=== PATIENT | female | born 1965 | race Caucasian/White ===

== ENCOUNTER → 2017-08-24 | Outpatient (CLI) | payer OTHER ==
[~2017-08-24] MED LIST: BISA10SU2 PR; CALC0.25 PO; CEFT1FRO2 IVPB; FURO-92 PO; FURO-93 PO; FURO40TA6 PO; LACT20SO13 PO; MAGN64TA7 PO; METR500T PO; MIDO10TA PO; MULT-516 PO; OXYC5TAB3 PO; PANT40TA3 PO; PARO20TA4 PO; POTA10TA PO; POTA10TA6 PO; PROP10TA PO; PROP20TA PO; RIFA200T5 PO; RIFA550T4 PO; SPIR100T2 PO; SPIR25TA3 PO; TACR1CAP4 PO; TRAZ100T15 PO; URSO250T9 PO; VALA500T PO; VITA1CAP PO; VITA80004 PO
[2017-08-24 11:48] LABS: HEMATOCRIT 45.9 % (34.6-47.8); HEMOGLOBIN 15.6 g/dL (11.7-16.4); WHITE BLOOD COUNT 4.2 x10^3/uL (3.4-10)
[2017-08-24 11:59] LABS: ASPARTATE AMINO TRANSFERASE 16 U/L (15-37); BLOOD UREA NITROGEN 17 mg/dL (7-18)
[2017-08-24 12:03] LABS: PATH.CAST-FLAG NOT PRESENT; SPERM-FLAG NOT PRESENT; SRC-FLAG NOT PRESENT; XTAL-FLAG NOT PRESENT; YLC-FLAG NOT PRESENT
== END | disposition home or self-care (01) ==
LOC: MERGE 10:00 → STAR 10:04
PROVIDERS: ATTEND Obstetrics & Gynecology
DX: Z01.818 Encounter for other preprocedural examination (principal); D06.9 Carcinoma in situ of cervix, unspecified
CPT/HCPCS: 36415; 80053; 81001; 85025

== ENCOUNTER 2017-08-30 05:45 | Observation (INO) | payer OTHER, MEDICARE ==
[~2017-08-30] VITALS: Ht 157.5 cm; Wt 55.5 kg
[2017-08-30] MEDS ORDERED: LIDOCAINE 1%, 2ML ONE (06:47)
[2017-08-30] MEDS ORDERED: FLUORESCEIN SODIUM 500 MG/5 ML ONE (06:49)
[2017-08-30] MEDS ORDERED: EPINEPHRINE 1 MG/ML, 1ML ONE (06:49)
[2017-08-30] MEDS ORDERED: BUPIVACAINE/PF 0.25% ONE (06:49)
[2017-08-30] MEDS ORDERED: LIDOCAINE 1%, 2ML SQ PRN (07:00)
[2017-08-30] MEDS: LACTATED RINGERS 1,000 ML IV SCH (07:09)
[2017-08-30] MEDS ORDERED: FENTANYL PF 100 MCG/2ML ONE ×2 (07:23→09:41)
[2017-08-30] MEDS ORDERED: HYDROmorphone 1 MG/ML, 1ML ONE (07:23)
[2017-08-30] MEDS ORDERED: KETOROLAC 30 MG/1 ML ONE (07:40)
[2017-08-30] MEDS ORDERED: PROPOFOL 10 MG/ML, 50ML ONE (07:40)
[2017-08-30] MEDS ORDERED: GLYCOPYRROLATE 0.2MG/1ML, 5ML ONE (07:40)
[2017-08-30] MEDS ORDERED: SUCCINYLCHOLINE 20 MG/ML, 10ML ONE (07:40)
[2017-08-30] MEDS ORDERED: CEFAZOLIN 1,000 MG ONE (07:40)
[2017-08-30] MEDS ORDERED: DEXAMETHASONE 4 MG/ML, 5ML ONE ×2 (07:40)
[2017-08-30] MEDS ORDERED: PHENYLEPHRINE 10 MG/ML ONE (07:40)
[2017-08-30] MEDS ORDERED: ONDANSETRON 2MG/ML, 2ML ONE (07:40)
[2017-08-30] MEDS ORDERED: ROCURONIUM 10 MG/ML ONE (07:40)
[2017-08-30] MEDS ORDERED: NEOSTIGMINE 1 MG/ML, 10ML ONE (07:40)
[2017-08-30] MEDS ORDERED: BUPIVACAINE/PF 0.25% INFIL ONE (08:12)
[2017-08-30] MEDS ORDERED: PROMETHAZINE 25 MG/ML, 1ML IV PRN (08:30)
[2017-08-30] MEDS ORDERED: LABETALOL 5MG/ML, 20ML IV PRN (08:30)
[2017-08-30] MEDS ORDERED: OXYcodone 5 MG/5 ML ORAL.SOL UDC PO PRN (08:30)
[2017-08-30] MEDS ORDERED: HYDROmorphone 1 MG/ML, 1ML IV PRN (08:30)
[2017-08-30] MEDS ORDERED: hydrALAzine 20 MG/ML, 1ML IV PRN (08:30)
[2017-08-30] MEDS ORDERED: ONDANSETRON 2MG/ML, 2ML IVPush PRN ×2 (08:30→18:30)
[2017-08-30] MEDS ORDERED: OXYcodone 5 MG/5 ML ORAL.SOL UDC ONE ×2 (09:41→18:24)
[2017-08-30] MEDS: FENTANYL PF 100 MCG/2ML IV PRN ×2 (09:43→09:56)
[2017-08-30 11:29] LABS: ASPARTATE AMINO TRANSFERASE 28 U/L (15-37); BLOOD UREA NITROGEN 22 mg/dL (7-18)
[2017-08-30] MEDS: OXYcodone 5 MG/5 ML ORAL.SOL UDC PO PRN ×3 (14:02→23:24)
[2017-08-30] MEDS ORDERED: LACTATED RINGERS 1,000 ML IV SCH (18:26)
[2017-08-30 20:27] VITALS: BP 107/68
[2017-08-30 23:18] VITALS: BP 98/64
[2017-08-31] MEDS: LACTATED RINGERS 1,000 ML IV SCH (01:43)
[2017-08-31 03:01] VITALS: BP 95/65
[2017-08-31] MEDS: OXYcodone 5 MG/5 ML ORAL.SOL UDC PO PRN ×2 (04:53→08:30)
[2017-08-31 07:47] VITALS: BP 96/63
[2017-08-31] MEDS ORDERED: OXYC5CAP2 PO (10:04)
== END 2017-08-31 10:35 | disposition home or self-care (01) ==
LOC: OUT 05:45 → MERGE 07:30 → OUT 18:25 → 4NOR 18:26 → DCLOUNGE 08-31 10:22
PROVIDERS: ADMIT Obstetrics & Gynecology; ATTEND Obstetrics & Gynecology
DX: D06.9 Carcinoma in situ of cervix, unspecified (principal); K70.30 Alcoholic cirrhosis of liver without ascites; K66.0 Peritoneal adhesions (postprocedural) (postinfection); Z80.3 Family history of malignant neoplasm of breast; Z87.410 Personal history of cervical dysplasia; Z82.49 Family history of ischemic heart disease and other diseases of the circulatory system; Z94.4 Liver transplant status
CPT/HCPCS: 36415; 58552; 80053; 88309; G0378; J0171; J0330; J0690; J1100; J1170; J1885; J2370; J2405; J2704; J2710; J3010; J3490; J7120

== ENCOUNTER → 2017-09-12 | Outpatient (CLI) | payer OTHER ==
[~2017-09-12] MED LIST changes: +OXYC5CAP2 PO
== END | disposition home or self-care (01) ==
LOC: MERGE 08-22 14:11 → CFH 08:14
PROVIDERS: ATTEND Family Medicine
DX: Z12.31 Encounter for screening mammogram for malignant neoplasm of breast (principal); M81.0 Age-related osteoporosis without current pathological fracture
CPT/HCPCS: 77063; 77080; G0202

== ENCOUNTER → 2017-10-13 | Outpatient (CLI) | payer OTHER | LOC: STAR 12:14 | PROVIDERS: ATTEND Surgery | DX: Z02.9 Encounter for administrative examinations, unspecified (principal) ==

== ENCOUNTER 2017-10-17 08:13 | Day surgery (SDC) | payer OTHER ==
[~2017-10-17] VITALS: Ht 157.5 cm; Wt 52.3 kg
[2017-10-17] MEDS ORDERED: LACTATED RINGERS 1,000 ML IV SCH (08:33)
[2017-10-17 09:04] VITALS: BP 100/59
[2017-10-17] MEDS ORDERED: FENTANYL PF 250 MCG/5ML ONE (09:31)
[2017-10-17] MEDS ORDERED: MIDAZOLAM 1 MG/ML, 2ML ONE (09:31)
[2017-10-17] MEDS ORDERED: KETOROLAC 30 MG/1 ML ONE (09:50)
[2017-10-17] MEDS ORDERED: BUPIVACAINE/PF 0.5% ONE (09:57)
[2017-10-17] MEDS ORDERED: EPINEPHRINE 1 MG/ML, 1ML ONE (09:57)
[2017-10-17] MEDS ORDERED: PROPOFOL 10 MG/ML, 20ML ONE (10:27)
[2017-10-17] MEDS ORDERED: ONDANSETRON 2MG/ML, 2ML ONE (10:27)
[2017-10-17] MEDS ORDERED: DEXAMETHASONE 4 MG/ML, 1ML ONE (10:27)
[2017-10-17] MEDS ORDERED: CEFAZOLIN 1,000 MG ONE (10:27)
[2017-10-17] MEDS ORDERED: OXYcodone 5 MG/5 ML ORAL.SOL UDC PO PRN (10:30)
[2017-10-17] MEDS ORDERED: HYDROmorphone 1 MG/ML, 1ML IV PRN (10:30)
[2017-10-17] MEDS ORDERED: hydrALAzine 20 MG/ML, 1ML IV PRN (10:30)
[2017-10-17] MEDS ORDERED: PROMETHAZINE 25 MG/ML, 1ML IV PRN (10:30)
[2017-10-17] MEDS ORDERED: FENTANYL PF 100 MCG/2ML IV PRN (10:30)
[2017-10-17] MEDS ORDERED: ALBUTEROL SULFATE 2.5 MG/3 ML NPPB PRN (10:30)
[2017-10-17] MEDS ORDERED: ACETAMINOPHEN 325 MG TABLET PO PRN (10:30)
[2017-10-17] MEDS ORDERED: MEPERIDINE/PF 25MG/0.5ML IVPush PRN (10:30)
[2017-10-17] MEDS ORDERED: METOPROLOL 1 MG/ML, 5ML IV PRN (10:30)
== END 2017-10-17 13:30 ==
LOC: OUT 08:13
PROVIDERS: ATTEND Surgery
DX: D17.1 Benign lipomatous neoplasm of skin and subcutaneous tissue of trunk (principal); Z88.1 Allergy status to other antibiotic agents; Z88.0 Allergy status to penicillin; Z98.890 Other specified postprocedural states; Z94.4 Liver transplant status
CPT/HCPCS: 22903; 88304; J0171; J0690; J1100; J1885; J2250; J2405; J2704; J3010; J3490; J7120

== ENCOUNTER 2020-01-30 19:12 | Observation (INO) | payer MEDICARE, OTHER ==
[~2020-01-30] VITALS: Ht 157.5 cm; Wt 48.2 kg
[~2020-01-30 19:12] MED LIST changes: -BISA10SU2 PR; +BISA10SU4 PR; -PROP10TA PO; +PROP10TA16 PO; -SPIR100T2 PO; +SPIR100T4 PO; -SPIR25TA3 PO; +SPIR25TA5 PO; +TRAZ-175 PO; -TRAZ100T15 PO; -VALA500T PO; +VALA500T8 PO
[2020-01-30] MEDS ORDERED: SODIUM CHLORIDE 0.9% 1,000 ML IV ONE (19:29)
[2020-01-30] MEDS ORDERED: ONDANSETRON 2MG/ML, 2ML IVPush ONE (19:30)
[2020-01-30] MEDS ORDERED: SODIUM CHLORIDE FLUSH 10ML SYR IVF ONE (19:30)
[2020-01-30] MEDS ORDERED: SODIUM CHLORIDE 0.9% 1,000ML IVBOLUS ONE (19:30)
[2020-01-30] MEDS ORDERED: ONDANSETRON 2MG/ML, 2ML ONE (19:40)
--- NOTE | 2020-01-30 20:12 | NUR ---
PT RESTING COFORTABLY. BACK FROM XRAY. MONITOR IN PLACE.
[2020-01-30 20:16] LABS: BASOPHILS # (AUTO) 0.01 x10^3/uL (0-0.1); BASOPHILS % (AUTO) 0 % (0-1); EOSINOPHILS # (AUTO) 0.01 x10^3/uL (0-0.4); EOSINOPHILS % (AUTO) 0 % (1-7); LYMPHOCYTES # (AUTO) 0.42 x10^3/uL (1-3.4); LYMPHOCYTES % (AUTO) 8 % (22-44); MD NO; MEAN CORPUSCULAR HEMOGLOBIN 35.8 pg (27.0-34.8); MEAN CORPUSCULAR HGB CONC 33.7 g/dL (32.4-35.8); MEAN CORPUSCULAR VOLUME 106.2 fL (80-100); MEAN PLATELET VOLUME 8.3 fL (7.4-10.4); MONOCYTES # (AUTO) 0.16 x10^3/uL (0.2-0.8); MONOCYTES % (AUTO) 3 % (2-9); NEUTROPHILS # (AUTO) 4.54 x10^3/uL (1.8-6.8); NEUTROPHILS % (AUTO) 88 % (42-75); PLATELET COUNT 138 x10^3/uL (130-400); RED CELL DISTRIBUTION WIDTH 12.9 % (9.6-15.2)
[2020-01-30 20:27] LABS: ALANINE AMINOTRANSFERASE 58 U/L (12-78); ALBUMIN 3.3 g/dL (3.4-5.0); ANION GAP 15 mmol/L (5-15); CALCIUM 7.3 mg/dL (8.5-10.1); CHLORIDE 113 mmol/L (98-107); CREATININE 0.82 mg/dL (0.55-1.02)
[2020-01-30 20:32] LABS: ALKALINE PHOSPHATASE 48 U/L (45-117); BILIRUBIN,TOTAL 0.5 mg/dL (0.2-1.0); TOTAL PROTEIN 6.4 g/dL (6.4-8.2); TROPONIN I < 0.015 ng/mL (0.000-0.045)
[2020-01-30 20:33] LABS: INTERNATIONAL NORMALIZED RATIO 1.15 (0.93-1.1); PROTHROMBIN TIME 12.2 Seconds (9.6-11.5)
[2020-01-30 21:53] LABS: MICROSCOPIC NOT IND
[2020-01-30 21:54] LABS: CULTURE INDICATED? NO
[2020-01-30] MEDS ORDERED: SODIUM CHLORIDE FLUSH 10ML SYR IVF PRN (22:30)
--- NOTE | 2020-01-30 22:45 | NUR ---
PT AMBULATED TO BR INDEPENDENTLY SBA. PT GAIT STEADY.
--- NOTE | 2020-01-30 23:18 | NUR ---
PT C/O N/V. NOTIFIED. ORDERS RECEIVED.
[2020-01-30] MEDS ORDERED: METOCLOPRAMIDE 5 MG/ML, 2ML IVPush ONE (23:30)
[2020-01-30 23:47] VITALS: BP 126/84
[2020-01-31 01:59] VITALS: BP 115/76
[2020-01-31] MEDS ORDERED: ONDANSETRON 2MG/ML, 2ML IVPush PRN (04:30)
[2020-01-31 05:26] LABS: CLOSTRIDIUM DIFFICILE ANTIGEN NEGATIVE; CLOSTRIDIUM DIFFICILE TOXIN NEGATIVE (Negative)
[2020-01-31 06:58] VITALS: BP 108/74
[2020-01-31] MEDS ORDERED: VALACYCLOVIR 500MG TABLET PO SCH (09:00)
[2020-01-31] MEDS ORDERED: TACROLIMUS 1 MG CAPSULE PO SCH (09:00)
[2020-01-31] MEDS ORDERED: ONDA4TAB7 PO (12:45)
[2020-01-31 14:04] VITALS: BP 115/79
[2020-01-31] MEDS ORDERED: TRAZODONE 100MG TABLET PO SCH (21:00)
== END 2020-01-31 15:15 | disposition home or self-care (01) ==
LOC: ED 23:28 → EDIP 23:40 → INTOOBSV 23:40 → 3N 01-31 00:05 → DCLOUNGE 01-31 15:08
PROVIDERS: ADMIT Family Medicine; ATTEND Family Medicine
DX: R11.2 Nausea with vomiting, unspecified (principal); R19.7 Diarrhea, unspecified; G43.909 Migraine, unspecified, not intractable, without status migrainosus; F10.10 Alcohol abuse, uncomplicated; E87.6 Hypokalemia; E86.0 Dehydration; Z94.4 Liver transplant status; Z87.891 Personal history of nicotine dependence
CPT/HCPCS: 36415; 74022; 80053; 81003; 83690; 84484; 85025; 85610; 85730; 87324; 93005; 96361; 96374; 96375; 99285; G0378; J2405; J2765; J7030; J7507

== ENCOUNTER 2020-07-23 22:36 | Inpatient (IN) | payer MEDICARE ==
[~2020-07-23] VITALS: Ht 157.5 cm; Wt 49.1 kg
[~2020-07-23 22:36] MED LIST changes: +ONDA4TAB7 PO; -TACR1CAP4 PO; +TACR1CAP5 PO
--- NOTE | 2020-07-23 23:24 | NUR ---
THIS IS A 55 YO FEMALE COMING IN FOR ETOH ABUSE, SEEKING DETOX. PATIENT HAS ATTEMPTED TO GET PLACEMENT OUTSIDE OF FACILITY WITH NO SUCCESS. PATIENT HAS 16OZ OF VODKA PER DAY, LAST DRINK @ 1999. HX HEMOCHROMOTOSIS. HAD LIVER TRANSPLANT IN 2016 AFTER BEING SOBER FOR 4.5 YEARS. BROKE SOBRIETY IN 2017. MONITORING IN PLACE, VSS, NADN. NO WITHDRAWL SYMPTOMS NOTED AT THIS TIME.
[2020-07-23] MEDS ORDERED: THIAMINE 100MG TABLET PO ONE (23:30)
[2020-07-23 23:41] LABS: BASOPHILS # (AUTO) 0.02 x10^3/uL (0-0.1); BASOPHILS % (AUTO) 1 % (0-1); EOSINOPHILS # (AUTO) 0.25 x10^3/uL (0-0.4); EOSINOPHILS % (AUTO) 7 % (1-7); LYMPHOCYTES # (AUTO) 1.47 x10^3/uL (1-3.4); LYMPHOCYTES % (AUTO) 39 % (22-44); MD NO; MEAN CORPUSCULAR HEMOGLOBIN 36.7 pg (27.0-34.8); MEAN CORPUSCULAR VOLUME 107.9 fL (80-100); MEAN PLATELET VOLUME 8.8 fL (7.4-10.4); MONOCYTES # (AUTO) 0.31 x10^3/uL (0.2-0.8); MONOCYTES % (AUTO) 8 % (2-9); NEUTROPHILS # (AUTO) 1.76 x10^3/uL (1.8-6.8); NEUTROPHILS % (AUTO) 46 % (42-75); PLATELET COUNT 123 x10^3/uL (130-400); RED BLOOD COUNT 3.65 x10^6/uL (3.82-5.3); RED CELL DISTRIBUTION WIDTH 15.1 % (9.6-15.2)
[2020-07-23] MEDS ORDERED: THIAMINE 100MG TABLET ONE (23:47)
[2020-07-23 23:50] LABS: ALANINE AMINOTRANSFERASE 103 U/L (12-78); ALBUMIN 3.6 g/dL (3.4-5.0); ANION GAP 6 mmol/L (5-15); CALCIUM 8.3 mg/dL (8.5-10.1); CHLORIDE 109 mmol/L (98-107); CREATININE 0.87 mg/dL (0.55-1.02)
[2020-07-23 23:53] LABS: ALKALINE PHOSPHATASE 136 U/L (45-117); BILIRUBIN,TOTAL 0.6 mg/dL (0.2-1.0); TOTAL PROTEIN 6.8 g/dL (6.4-8.2)
[2020-07-24] MEDS ORDERED: SODIUM CHLORIDE FLUSH 10ML SYR IVF PRN (00:30)
--- NOTE | 2020-07-24 00:44 | NUR ---
PIV PLACD FOR IV ACCESS
--- NOTE | 2020-07-24 00:45 | NUR ---
ATTEMPTED TO CALL HOUSEKEEPING TO GET HOSPITAL BED, NO ANSWER. WILL ATTEMPT AGAIN
[2020-07-24] MEDS ORDERED: ONDANSETRON 2MG/ML, 2ML IVPush PRN (01:00)
[2020-07-24] MEDS ORDERED: OXYcodone IR 5MG TABLET PO PRN (01:00)
[2020-07-24] MEDS ORDERED: POLYETHYLENE GLYCOL 17 GM PACKET PO PRN (01:00)
[2020-07-24] MEDS ORDERED: PROMETHAZINE 25 MG/ML, 1ML IM PRN (01:00)
[2020-07-24] MEDS ORDERED: hydrALAzine 20 MG/ML, 1ML IVPush PRN (01:00)
[2020-07-24] MEDS ORDERED: ONDANSETRON ODT 4 MG PO PRN (01:00)
[2020-07-24] MEDS ORDERED: BISACODYL 10 MG SUPP PR PRN (01:00)
[2020-07-24] MEDS ORDERED: DOCUSATE 100 MG CAPSULE PO PRN (01:00)
[2020-07-24] MEDS ORDERED: LORazepam 1MG TABLET PO PRN ×4 (01:30)
[2020-07-24] MEDS ORDERED: LORazepam 0.5MG TABLET PO PRN (01:30)
[2020-07-24] MEDS ORDERED: LORazepam 2 MG/ML, 1ML IV PRN ×5 (01:30)
--- NOTE | 2020-07-24 01:45 | NUR ---
PATIENT SLEEPING, RESPIRATIONS EVEN AND UNLABORED. VSSIMRAN Marroquin. CALL LIGHT IN REACH
[2020-07-24 01:49] LABS: INTERNATIONAL NORMALIZED RATIO 1.04 (0.93-1.1); PROTHROMBIN TIME 10.7 Seconds (9.6-11.5)
[2020-07-24 02:29] LABS: FREE T4 (FREE THYROXINE) 1.31 ng/dL (0.76-1.46)
--- NOTE | 2020-07-24 02:33 | NUR ---
PATIENT SLEEPING, RESPIRATIONS EVEN AND UNLABORED. SIMRAN HOBSON. CALL LIGHT IN REACH Addendum: 07/24/20 at 0246 by MANJULA NOTE COMPLETED BY JUAN M NOGUERA. NOT BY CHUCKIE UPTON
--- NOTE | 2020-07-24 03:09 | NUR ---
REPORT GIVEN TO CHUCKIE HOWELL. PLAN OF CARE DISCUSSED
--- NOTE | 2020-07-24 06:21 | NUR ---
Pt resting with eyes closed and appears to be sleeping at this time, NADN, VSS,
--- NOTE | 2020-07-24 06:50 | NUR ---
Report from yahir rn With assessment patient deep asleep Even and unlabored respirations noted-VSS on monitor
[2020-07-24] MEDS: MULTIVITAMIN 1 TABLET PO SCH ×2 (07:53→09:10)
--- NOTE | 2020-07-24 08:21 | NUR ---
SPOKE TO HOSPITALIST IN R/T TO TWO MEDI QUESTIONS: PATIENT ONLY TAKES 1GM OF PROGRAF BID (CHANGED FROM 2GM BID), ALSO TO ADMIN 2GM OF MAG MAG LEVEL 1.3
[2020-07-24] MEDS ORDERED: MAGNESIUM SULFATE PMX 2GM/50ML 50 ML IV ONE (08:30)
--- NOTE | 2020-07-24 08:46 | NUR ---
MEDS ORDERED FROM PHARMACY (PROGRAF/VALTREX) MOVED TO HOSPITAL BED PROVIDED WITH BREAKFAST TRAY
[2020-07-24] MEDS ORDERED: MAGNESIUM SULFATE PMX 2GM/50ML 50 ML ONE (08:51)
[2020-07-24] MEDS ORDERED: TACROLIMUS 1 MG CAPSULE PO SCH (09:00)
[2020-07-24] MEDS: THIAMINE 100MG TABLET PO SCH (09:00)
[2020-07-24] MEDS: TACROLIMUS 1 MG CAPSULE PO SCH ×2 (09:10→20:11)
[2020-07-24] MEDS: FOLIC ACID 1 MG TABLET PO SCH (09:10)
[2020-07-24] MEDS: VALACYCLOVIR 500MG TABLET PO SCH (09:10)
--- NOTE | 2020-07-24 10:23 | NUR ---
Now with slight anxiety/headache- to medicate with po ativan
[2020-07-24] MEDS ORDERED: LORazepam 1MG TABLET ONE (10:30)
[2020-07-24] MEDS: POTASSIUM CHLORIDE 20 MEQ, MAGNESIUM SULFATE 1 GM, FOLIC ACID 1 MG, THIAMINE 200 MG, MV... IV SCH (10:32)
--- NOTE | 2020-07-24 10:57 | NUR ---
report to isauro winston
--- NOTE | 2020-07-24 11:01 | NUR ---
RECEIVED REPORT FROM ALLEN NOGUERA. ASSUMING CARE AT THIS TIME. PT RESTING COMFORTABLY ON HOSPITAL BED. NADN. WAITING FOR ADMIT BED UPSTAIRS.
--- NOTE | 2020-07-24 12:43 | NUR ---
DIET TRAY DELIVERED. PT STATES SHE FEELS BETTER AFTER ATIVAN.
--- NOTE | 2020-07-24 14:30 | NUR ---
PT AMBULATED TO RESTROOM WITH STEADY GAIT.
--- NOTE | 2020-07-24 14:49 | NUR ---
REPORT GIVEN TO YAMIL NOGUERA.
[2020-07-24 16:44] VITALS: BP 113/75
[2020-07-24 19:44] VITALS: BP 118/78
[2020-07-24] MEDS: TRAZODONE 100MG TABLET PO SCH (20:11)
[2020-07-25 00:34] VITALS: BP 109/73
[2020-07-25 07:21] LABS: CHLORIDE 110 mmol/L (98-107)
[2020-07-25 07:28] LABS: ALANINE AMINOTRANSFERASE 72 U/L (12-78); ALKALINE PHOSPHATASE 119 U/L (45-117); ANION GAP 7 mmol/L (5-15); CALCIUM 7.7 mg/dL (8.5-10.1); CHOL/HDL RATIO 1.7; CHOLESTEROL, TOTAL 217 mg/dL (140-239); CREATININE 0.68 mg/dL (0.55-1.02); HDL CHOL % 60 % (28-40); HDL CHOLESTEROL (DIRECT) 130 mg/dL (40-60); LDL CHOLESTEROL,CALCULATED 61 mg/dL (54-169); LDL/HDL RATIO 0.5 (0.5-3.0); TOTAL PROTEIN 6.3 g/dL (6.4-8.2); TRIGLYCERIDES 129 mg/dL (50-200); VLDL CHOLESTEROL 26 mg/dL (0-25)
[2020-07-25 08:08] LABS: BASOPHILS # (AUTO) 0.01 x10^3/uL (0-0.1); BASOPHILS % (AUTO) 0 % (0-1); EOSINOPHILS # (AUTO) 0.21 x10^3/uL (0-0.4); EOSINOPHILS % (AUTO) 5 % (1-7); LYMPHOCYTES # (AUTO) 0.79 x10^3/uL (1-3.4); LYMPHOCYTES % (AUTO) 20 % (22-44); MD SCAN; MEAN CORPUSCULAR HEMOGLOBIN 36.7 pg (27.0-34.8); MEAN CORPUSCULAR HGB CONC 33.8 g/dL (32.4-35.8); MEAN CORPUSCULAR VOLUME 108.4 fL (80-100); MEAN PLATELET VOLUME 9.4 fL (7.4-10.4); MONOCYTES # (AUTO) 0.26 x10^3/uL (0.2-0.8); MONOCYTES % (AUTO) 6 % (2-9); NEUTROPHILS # (AUTO) 2.74 x10^3/uL (1.8-6.8); NEUTROPHILS % (AUTO) 68 % (42-75); PLATELET COUNT 96 x10^3/uL (130-400); RED BLOOD COUNT 3.48 x10^6/uL (3.82-5.3); RED CELL DISTRIBUTION WIDTH 15.3 % (9.6-15.2)
[2020-07-25 08:10] VITALS: BP 109/73
[2020-07-25] MEDS: THIAMINE 100MG TABLET PO SCH (08:22)
[2020-07-25] MEDS: TACROLIMUS 1 MG CAPSULE PO SCH ×2 (08:22→20:07)
[2020-07-25] MEDS: MULTIVITAMIN 1 TABLET PO SCH ×2 (08:22→08:23)
[2020-07-25] MEDS: VALACYCLOVIR 500MG TABLET PO SCH (08:22)
[2020-07-25] MEDS: FOLIC ACID 1 MG TABLET PO SCH (08:22)
[2020-07-25] MEDS: POTASSIUM CHLORIDE 20 MEQ, MAGNESIUM SULFATE 1 GM, FOLIC ACID 1 MG, THIAMINE 200 MG, MV... IV SCH (11:24)
[2020-07-25 13:30] VITALS: BP 111/71
[2020-07-25] MEDS: CHLORDIAZEPOXIDE 10 MG CAPSULE PO SCH ×2 (15:02→20:07)
[2020-07-25] MEDS: TRAZODONE 100MG TABLET PO SCH (20:07)
[2020-07-25 20:09] VITALS: BP 123/82
[2020-07-26 01:07] VITALS: BP 112/76
[2020-07-26] MEDS: CHLORDIAZEPOXIDE 10 MG CAPSULE PO SCH (05:52)
[2020-07-26 06:46] LABS: ANION GAP 6 mmol/L (5-15); CALCIUM 7.6 mg/dL (8.5-10.1); CHLORIDE 113 mmol/L (98-107)
[2020-07-26 06:51] LABS: ALANINE AMINOTRANSFERASE 66 U/L (12-78); ALKALINE PHOSPHATASE 108 U/L (45-117); BILIRUBIN,TOTAL 0.6 mg/dL (0.2-1.0); CREATININE 0.59 mg/dL (0.55-1.02); TOTAL PROTEIN 5.7 g/dL (6.4-8.2)
[2020-07-26 07:20] VITALS: BP 111/74
[2020-07-26] MEDS ORDERED: CHLO10CA6 PO (07:54)
[2020-07-26] MEDS: FOLIC ACID 1 MG TABLET PO SCH (08:47)
[2020-07-26] MEDS: THIAMINE 100MG TABLET PO SCH (08:47)
[2020-07-26] MEDS: VALACYCLOVIR 500MG TABLET PO SCH (08:48)
[2020-07-26] MEDS: TACROLIMUS 1 MG CAPSULE PO SCH (08:48)
[2020-07-26] MEDS: MULTIVITAMIN 1 TABLET PO SCH (08:48)
== END 2020-07-26 10:13 | disposition home or self-care (01) | DRG 433 ==
LOC: ED 07-24 01:07 → EDIP 07-24 01:54 → 4WST 07-24 15:37 → DCLOUNGE 07-26 09:52
PROVIDERS: ADMIT Internal Medicine; ATTEND Family Medicine
DX: K70.10 Alcoholic hepatitis without ascites (principal); Z94.4 Liver transplant status; F10.129 Alcohol abuse with intoxication, unspecified; D69.6 Thrombocytopenia, unspecified; E87.6 Hypokalemia; F41.9 Anxiety disorder, unspecified; G43.909 Migraine, unspecified, not intractable, without status migrainosus; K74.60 Unspecified cirrhosis of liver; Z80.0 Family history of malignant neoplasm of digestive organs; Z90.710 Acquired absence of both cervix and uterus; Z90.721 Acquired absence of ovaries, unilateral; Z79.899 Other long term (current) drug therapy; Z88.8 Allergy status to other drugs, medicaments and biological substances; Z88.2 Allergy status to sulfonamides; Z71.41 Alcohol abuse counseling and surveillance of alcoholic
CPT/HCPCS: 36415; 80053; 80061; 80197; 80307; 82306; 82607; 82962; 83036; 83690; 83735; 84439; 84443; 85025; 85610; G0378; J3411; J3475; J3480; J7507; J7121

== ENCOUNTER 2021-01-06 16:37 | Emergency (ER) | payer MEDICARE ==
[~2021-01-06] VITALS: Ht 157.5 cm; Wt 48.5 kg
[~2021-01-06 16:37] MED LIST changes: +CHLO10CA6 PO; -OXYC5TAB3 PO; +OXYC5TAB98 PO; +URSO250T10 PO; -URSO250T9 PO
[2021-01-06 16:59] VITALS: BP 131/92
--- NOTE | 2021-01-06 16:59 | NUR ---
NIL X 1
--- NOTE | 2021-01-06 17:30 | NUR ---
registration reported patient left ama from lobby. provider/charge entry made aware
== END 2021-01-06 17:36 | disposition home or self-care (01) ==
LOC: ED 17:30
DX: M62.838 Other muscle spasm (principal)
CPT/HCPCS: 99281

== ENCOUNTER 2021-01-30 11:38 | Inpatient (IN) | payer MEDICARE ==
[~2021-01-30] VITALS: Ht 157.5 cm; Wt 49.5 kg
[2021-01-30] MEDS ORDERED: SODIUM CHLORIDE 0.9% 1,000ML IVBOLUS ONE (12:00)
--- NOTE | 2021-01-30 12:03 | NUR ---
bib ems. pt stated "that her left hand started cramping. then her arms and legs started cramping and locked up. called ems and they meet her at [facility]" ems stated "admin 1 mg versed fsbs 195 " pt able to move arms and legs now "seem to be loosing up"
[2021-01-30 12:22] LABS: BASOPHILS % (AUTO) 1 % (0-1); EOSINOPHILS % (AUTO) 1 % (1-7); LYMPHOCYTES % (AUTO) 13 % (22-44); MD NO; MEAN CORPUSCULAR HEMOGLOBIN 36.5 pg (27.0-34.8); MEAN CORPUSCULAR HGB CONC 34.4 g/dL (32.4-35.8); MEAN PLATELET VOLUME 8.7 fL (7.4-10.4); MONOCYTES % (AUTO) 5 % (2-9); NEUTROPHILS % (AUTO) 81 % (42-75); PLATELET COUNT 151 x10^3/uL (130-400); RED BLOOD COUNT 4.11 x10^6/uL (3.82-5.3)
--- NOTE | 2021-01-30 12:30 | NUR ---
pt up to restroom with steady gait
[2021-01-30 12:33] LABS: ALBUMIN 3.4 g/dL (3.4-5.0); ANION GAP 15 mmol/L (5-15); CALCIUM 6.7 mg/dL (8.5-10.1); CHLORIDE 102 mmol/L (98-107)
[2021-01-30 12:36] LABS: ALANINE AMINOTRANSFERASE 55 U/L (12-78); ALKALINE PHOSPHATASE 78 U/L (45-117); BILIRUBIN,TOTAL 0.9 mg/dL (0.2-1.0)
[2021-01-30] MEDS ORDERED: CALCIUM GLUCONATE 0.46MEQ/1ML IVPush ONE (13:00)
[2021-01-30] MEDS ORDERED: NS + 40MEQ KCL 1,000 ML IV SCH (13:00)
[2021-01-30] MEDS ORDERED: CALCIUM GLUCONATE 4.6 MEQ in SODIUM CHLORIDE 0.9% 100 ML IV ONE (13:30)
--- NOTE | 2021-01-30 13:30 | NUR ---
pt in bed iv fluids running
[2021-01-30] MEDS ORDERED: NS + 40MEQ KCL 1,000 ML IV ONE (13:45)
[2021-01-30] MEDS ORDERED: SODIUM CHLORIDE FLUSH 10ML SYR IVF PRN (14:00)
[2021-01-30] MEDS ORDERED: POTASSIUM CHLORIDE 40 MEQ in SODIUM CHLORIDE 0.9% 1,000 ML IV ONE (14:00)
[2021-01-30 14:13] LABS: MICROSCOPIC AUTO
--- NOTE | 2021-01-30 14:19 | NUR ---
pt admitted to tele 2. report given to victor hugo winston.
[2021-01-30] MEDS ORDERED: RIZA10TA20 PO (14:37)
[2021-01-30 14:38] VITALS: BP 131/71
[2021-01-30] MEDS ORDERED: THIAMINE 200 MG, FOLIC ACID 1 MG in D5%-0.9% NACL 1,000 ML IV SCH (15:48)
[2021-01-30] MEDS ORDERED: OXYcodone IR 5MG TABLET PO PRN (16:00)
[2021-01-30] MEDS ORDERED: CALCIUM CHLORIDE 10%, 10ML SYR IVPush ONE (16:00)
[2021-01-30] MEDS ORDERED: LORazepam 2 MG/ML, 1ML IV PRN ×5 (16:00)
[2021-01-30] MEDS ORDERED: morphine SULFATE 10 MG/ML, 1ML IVPush PRN (16:00)
[2021-01-30] MEDS ORDERED: POTASSIUM CHLORIDE 40 MEQ in SODIUM CHLORIDE 0.9% 500 ML IV ONE (16:00)
[2021-01-30] MEDS ORDERED: METOCLOPRAMIDE 5 MG/ML, 2ML IVPush PRN (16:00)
[2021-01-30] MEDS ORDERED: PROMETHAZINE 25 MG/ML, 1ML IM PRN (16:00)
[2021-01-30] MEDS ORDERED: THIAMINE 200 MG in SODIUM CHLORIDE 0.9% 50 ML IV ONE (16:00)
[2021-01-30] MEDS ORDERED: ONDANSETRON 2MG/ML, 2ML IVPush PRN (16:00)
[2021-01-30] MEDS: ENOXAPARIN 40 MG/0.4 ML SQ SCH (16:51)
[2021-01-30] MEDS: CHLORDIAZEPOXIDE 25 MG CAPSULE PO SCH ×2 (16:51→21:59)
[2021-01-30] MEDS: CEFTRIAXONE PMX 1GM/50ML 50 ML IV SCH (16:59)
[2021-01-30 17:22] LABS: CLOSTRIDIUM DIFFICILE ANTIGEN POSITIVE; CLOSTRIDIUM DIFFICILE TOXIN NEGATIVE (Negative)
[2021-01-30] MEDS ORDERED: CALCIUM CHLORIDE 13.6 MEQ in SODIUM CHLORIDE 0.9% 100 ML IV ONE (18:30)
[2021-01-30 20:47] VITALS: BP 124/83
[2021-01-30] MEDS: LACTOBACILLUS CHEW TABLET PO SCH (20:49)
[2021-01-30] MEDS: VANCOMYCIN 50 MG/ML ORAL SUSP PO SCH (20:49)
[2021-01-30] MEDS: TRAZODONE 100MG TABLET PO SCH (20:49)
[2021-01-30] MEDS: TACROLIMUS 1 MG CAPSULE PO SCH (20:49)
[2021-01-30] MEDS: THIAMINE 200 MG, FOLIC ACID 1 MG in D5%-0.9% NACL 1,000 ML IV SCH (21:00)
[2021-01-31 03:27] VITALS: BP 109/71
[2021-01-31 05:25] LABS: BASOPHILS % (AUTO) 1 % (0-1); EOSINOPHILS % (AUTO) 5 % (1-7); LYMPHOCYTES % (AUTO) 33 % (22-44); MEAN CORPUSCULAR HEMOGLOBIN 36.4 pg (27.0-34.8); MEAN CORPUSCULAR HGB CONC 34.9 g/dL (32.4-35.8); MEAN PLATELET VOLUME 9.5 fL (7.4-10.4); MONOCYTES % (AUTO) 9 % (2-9); NEUTROPHILS % (AUTO) 53 % (42-75); PLATELET COUNT 117 x10^3/uL (130-400); RED CELL DISTRIBUTION WIDTH 12.7 % (9.6-15.2)
[2021-01-31 05:27] LABS: ALBUMIN 2.7 g/dL (3.4-5.0); ANION GAP 10 mmol/L (5-15); CALCIUM 6.7 mg/dL (8.5-10.1); CHLORIDE 112 mmol/L (98-107)
[2021-01-31 05:29] LABS: MD NO
[2021-01-31 05:41] LABS: ALANINE AMINOTRANSFERASE 38 U/L (12-78); ALKALINE PHOSPHATASE 63 U/L (45-117); BILIRUBIN,TOTAL 0.9 mg/dL (0.2-1.0); CREATININE 0.72 mg/dL (0.55-1.02); TOTAL PROTEIN 5.7 g/dL (6.4-8.2)
[2021-01-31] MEDS: CHLORDIAZEPOXIDE 25 MG CAPSULE PO SCH ×2 (05:55→12:42)
[2021-01-31] MEDS: LACTOBACILLUS CHEW TABLET PO SCH ×4 (05:55→21:09)
[2021-01-31] MEDS: VANCOMYCIN 50 MG/ML ORAL SUSP PO SCH ×3 (05:55→17:52)
[2021-01-31] MEDS ORDERED: MAGNESIUM SULFATE PMX 4GM/100M 100 ML IVPB STA (06:37)
[2021-01-31] MEDS ORDERED: POTASSIUM PHOSPHATE 44 MEQ in SODIUM CHLORIDE 0.9% 500 ML IV ONE (07:30)
[2021-01-31] MEDS: VALACYCLOVIR 500MG TABLET PO SCH (07:35)
[2021-01-31] MEDS: PANTOPRAZOLE 40 MG IV IVPush SCH (07:35)
[2021-01-31] MEDS: TACROLIMUS 1 MG CAPSULE PO SCH ×2 (07:35→21:09)
[2021-01-31 08:20] VITALS: BP 110/72
[2021-01-31] MEDS: MULTIVITS,STRESS FORMULA 1 TABLET PO SCH (09:08)
[2021-01-31] MEDS: CHOLECALCIFEROL 5,000u TAB PO SCH (09:09)
[2021-01-31] MEDS: ZINC SULFATE 220 MG CAPSULE PO SCH (09:09)
[2021-01-31] MEDS: ASCORBIC ACID 500 MG TABLET PO SCH ×2 (12:43→16:26)
[2021-01-31 14:00] VITALS: BP 116/76
[2021-01-31 14:18] LABS: FREE T4 (FREE THYROXINE) 0.69 ng/dL (0.76-1.46)
[2021-01-31] MEDS: ENOXAPARIN 40 MG/0.4 ML SQ SCH (16:00)
[2021-01-31] MEDS: CEFTRIAXONE PMX 1GM/50ML 50 ML IV SCH (16:26)
[2021-01-31 19:14] VITALS: BP 98/65
[2021-01-31] MEDS: TRAZODONE 100MG TABLET PO SCH (21:09)
[2021-01-31] MEDS: THIAMINE 200 MG, FOLIC ACID 1 MG in D5%-0.9% NACL 1,000 ML IV SCH (21:10)
[2021-02-01] MEDS: VANCOMYCIN 50 MG/ML ORAL SUSP PO SCH ×3 (00:07→11:15)
[2021-02-01 00:08] VITALS: BP 115/76
[2021-02-01] MEDS: LACTOBACILLUS CHEW TABLET PO SCH ×2 (05:56→11:15)
[2021-02-01 06:04] LABS: CHLORIDE 115 mmol/L (98-107)
[2021-02-01 06:21] LABS: ALANINE AMINOTRANSFERASE 38 U/L (12-78); ALBUMIN 2.8 g/dL (3.4-5.0); ALKALINE PHOSPHATASE 62 U/L (45-117); ANION GAP 9 mmol/L (5-15); BILIRUBIN,TOTAL 0.5 mg/dL (0.2-1.0); CALCIUM 6.3 mg/dL (8.5-10.1); CREATININE 0.69 mg/dL (0.55-1.02); TOTAL PROTEIN 5.9 g/dL (6.4-8.2)
[2021-02-01] MEDS ORDERED: POTASSIUM CHLORIDE 20 MEQ in SODIUM CHLORIDE 0.9% 250 ML IV ONE (07:00)
[2021-02-01] MEDS ORDERED: THYROID 30 MG TABLET PO SCH (07:00)
[2021-02-01] MEDS ORDERED: MAGNESIUM SULFATE PMX 2GM/50ML 50 ML IV ONE (07:00)
[2021-02-01 07:50] VITALS: BP 117/81
[2021-02-01] MEDS: PANTOPRAZOLE 40 MG IV IVPush SCH (08:42)
[2021-02-01] MEDS: VALACYCLOVIR 500MG TABLET PO SCH (08:42)
[2021-02-01] MEDS: TACROLIMUS 1 MG CAPSULE PO SCH (08:42)
[2021-02-01] MEDS: MULTIVITS,STRESS FORMULA 1 TABLET PO SCH (08:42)
[2021-02-01] MEDS: ASCORBIC ACID 500 MG TABLET PO SCH (08:42)
[2021-02-01] MEDS: ZINC SULFATE 220 MG CAPSULE PO SCH (08:42)
[2021-02-01] MEDS: CHOLECALCIFEROL 5,000u TAB PO SCH (08:42)
[2021-02-01] MEDS ORDERED: CHLO25CA9 PO (09:47)
[2021-02-01] MEDS ORDERED: CEFTRIAXONE PMX 1GM/50ML 50 ML IV SCH (11:00)
[2021-02-01] MEDS ORDERED: VANC125C11 PO (11:32)
[2021-02-01 12:52] VITALS: BP 104/61
== END 2021-02-01 14:30 | disposition home or self-care (01) | DRG 641 ==
LOC: ED 12:31 → EDIP 13:33 → 4WST 14:29
PROVIDERS: ADMIT Internal Medicine; ATTEND Family Medicine
DX: E83.51 Hypocalcemia (principal); N39.0 Urinary tract infection, site not specified; Z94.4 Liver transplant status; F10.239 Alcohol dependence with withdrawal, unspecified; E87.6 Hypokalemia; D75.89 Other specified diseases of blood and blood-forming organs; E03.9 Hypothyroidism, unspecified; R11.2 Nausea with vomiting, unspecified; B96.89 Other specified bacterial agents as the cause of diseases classified elsewhere; G43.909 Migraine, unspecified, not intractable, without status migrainosus; R00.0 Tachycardia, unspecified; Z90.710 Acquired absence of both cervix and uterus; Z88.0 Allergy status to penicillin; Z88.2 Allergy status to sulfonamides; Z88.8 Allergy status to other drugs, medicaments and biological substances; Z82.49 Family history of ischemic heart disease and other diseases of the circulatory system; Z82.5 Family history of asthma and other chronic lower respiratory diseases; Z80.0 Family history of malignant neoplasm of digestive organs
CPT/HCPCS: 36415; 74176; 80053; 80197; 80320; 81001; 82607; 83735; 84100; 84439; 84443; 84481; 85025; 87086; 87186; 87324; 87493; 93005; 96374; 96375; 99285; G0378; J0610; J0696; J1650; J2405; J3370; J3411; J3480; J7042; J7507; C9113; G0480; J3475; J7030; J7040; J7050

== ENCOUNTER 2021-03-04 14:31 | Emergency (ER) | payer MEDICARE ==
[~2021-03-04] VITALS: Ht 157.5 cm; Wt 47.3 kg
[~2021-03-04 14:31] MED LIST changes: +CHLO25CA9 PO; +RIZA10TA20 PO; +VANC125C11 PO
--- NOTE | 2021-03-04 15:00 | NUR ---
CC OF FATIGUE SINCE MONDAY AFTER GETTING FIRST COVID VACCINE. PT STATES "I HAVE BEEN AWAKE 1-2 HRS TOTAL SINCE AND I DON'T REMEMBER ANYTHING FROM YESTERDAY". PT A&0X4, SISTER AT BEDSIDE. PT ALSO STILL ON VANCO FOR C-DIFF INFECTION, PT STATES SHE WAS JUST ADMITTED HERE FOR C-DIFF.
[2021-03-04] MEDS ORDERED: SODIUM CHLORIDE 0.9% 1,000ML IVBOLUS ONE (15:30)
[2021-03-04] MEDS ORDERED: ONDANSETRON 2MG/ML, 2ML IVPush ONE (15:30)
[2021-03-04] MEDS ORDERED: ONDANSETRON 2MG/ML, 2ML ONE (15:38)
[2021-03-04 15:47] LABS: BASOPHILS % (AUTO) 1 % (0-1); EOSINOPHILS % (AUTO) 4 % (1-7); LYMPHOCYTES % (AUTO) 43 % (22-44); MEAN CORPUSCULAR HEMOGLOBIN 36.2 pg (27.0-34.8); MEAN CORPUSCULAR HGB CONC 34.3 g/dL (32.4-35.8); MEAN PLATELET VOLUME 8.4 fL (7.4-10.4); MONOCYTES % (AUTO) 9 % (2-9); NEUTROPHILS % (AUTO) 43 % (42-75); PLATELET COUNT 185 x10^3/uL (130-400); RED BLOOD COUNT 4.47 x10^6/uL (3.82-5.3); RED CELL DISTRIBUTION WIDTH 13.9 % (9.6-15.2)
[2021-03-04 15:49] LABS: MD NO
[2021-03-04 15:58] LABS: ALANINE AMINOTRANSFERASE 58 U/L (12-78); ANION GAP 10 mmol/L (5-15); CALCIUM 8.6 mg/dL (8.5-10.1); CHLORIDE 105 mmol/L (98-107); CREATININE 0.91 mg/dL (0.55-1.02)
[2021-03-04 16:01] LABS: ALKALINE PHOSPHATASE 107 U/L (45-117); BILIRUBIN,TOTAL 0.5 mg/dL (0.2-1.0); TOTAL PROTEIN 8.2 g/dL (6.4-8.2)
[2021-03-04 17:17] VITALS: BP 125/73
== END 2021-03-04 17:33 | disposition home or self-care (01) ==
LOC: ED 17:30
DX: R53.1 Weakness (principal); R19.7 Diarrhea, unspecified; K21.9 Gastro-esophageal reflux disease without esophagitis; E87.6 Hypokalemia; E83.51 Hypocalcemia; Z90.710 Acquired absence of both cervix and uterus
CPT/HCPCS: 36415; 80053; 85025; 93005; 96374; 99284; J2405; J7030

== ENCOUNTER 2021-04-22 01:41 | Emergency (ER) | payer MEDICARE ==
[~2021-04-22] VITALS: Ht 157.5 cm; Wt 48.0 kg
--- NOTE | 2021-04-22 01:41 | NUR ---
INITIAL PT CONTACT. PT PRESENTS TO ED VIA EMS C/O ETOH WITHDRAWL AND ASSOCIATED CHEST PAIN. PT DRINKS 1 PINT VODKA DAILY. LAST DRINK APPROX 14 HOURS AGO. PT STATES "I WANNA QUIT DRINKING, I HAD A LIVER TRANSPLANT AND STOPPED DRINKING SIGNIFICANTLY. NOW I HAVE BEEN DRINKING OFTEN FOR THE PAST 5 DAYS OR SO." HX OF MULTIPLE ETOH WITHDRAWL. PT MODERATELY TREMULOUS UPON ARRIVAL TO ED. PT GIVEN ZOFRAN AND VERSED WIRE SPRING RELAY ADJUSTER WITH EMS, PT REPORTS MINIMAL TO NO RELIEF FOLLOWING TRACER LATHE SET UP OPERATOR WITH EMS. PT TRANSFERED FROM EMS [facility] TO ED [facility]. PT PLACED ON CONTINUOUS PULSE OX AND CARDIAC MONITORING. PT SITTING UPRIGHT, CALL LIGHT IN REACH AND PROVIDED WARM BLANKETS. ERP AT BEDSIDE. WILL MEDICATE PT PER EMAR.
[2021-04-22] MEDS ORDERED: ONDANSETRON 2MG/ML, 2ML ONE (01:43)
[2021-04-22] MEDS ORDERED: LORazepam 2 MG/ML, 1ML ONE (01:44)
[2021-04-22] MEDS ORDERED: SODIUM CHLORIDE 0.9% 1,000ML IVBOLUS ONE (02:00)
[2021-04-22] MEDS ORDERED: LORazepam 2 MG/ML, 1ML IVPush ONE (02:00)
[2021-04-22] MEDS ORDERED: ONDANSETRON 2MG/ML, 2ML IVPush ONE (02:00)
[2021-04-22 02:16] LABS: ALANINE AMINOTRANSFERASE 39 U/L (12-78); ALBUMIN 4.3 g/dL (3.4-5.0); ANION GAP 15 mmol/L (5-15); CALCIUM 9.8 mg/dL (8.5-10.1); CHLORIDE 100 mmol/L (98-107); CREATININE 1.45 mg/dL (0.55-1.02)
[2021-04-22 02:19] LABS: ALKALINE PHOSPHATASE 87 U/L (45-117); BILIRUBIN,TOTAL 0.6 mg/dL (0.2-1.0); TOTAL PROTEIN 8.2 g/dL (6.4-8.2)
[2021-04-22 02:32] LABS: BASOPHILS % (AUTO) 0 % (0-1); EOSINOPHILS % (AUTO) 0 % (1-7); LYMPHOCYTES % (AUTO) 9 % (22-44); MEAN CORPUSCULAR HEMOGLOBIN 35.5 pg (27.0-34.8); MEAN CORPUSCULAR HGB CONC 34.1 g/dL (32.4-35.8); MEAN PLATELET VOLUME 9.5 fL (7.4-10.4); MONOCYTES % (AUTO) 3 % (2-9); NEUTROPHILS % (AUTO) 88 % (42-75); PLATELET COUNT 256 x10^3/uL (130-400); RED BLOOD COUNT 4.65 x10^6/uL (3.82-5.3); RED CELL DISTRIBUTION WIDTH 14.3 % (9.6-15.2)
[2021-04-22 02:34] LABS: MD SCAN
--- NOTE | 2021-04-22 02:43 | NUR ---
PT SLEEPING IN BED. PT IN ND. VSS. WCTM
--- NOTE | 2021-04-22 03:15 | NUR ---
PT SLEEPING IN BED. PT IN NAD. WCTM.
[2021-04-22 03:40] VITALS: BP 153/81
--- NOTE | 2021-04-22 03:47 | NUR ---
Patient given discharge instructions and they have confirmed that they understand the instructions. Patient ambulatory with steady gait. TAXI VOUCHER GIVEN FOR SAFE RIDE HOME. NO CIWA SYMTPMS NOTED ON DISCHARGE.
== END 2021-04-22 03:50 | disposition home or self-care (01) ==
LOC: ED 01:58
DX: F10.139 Alcohol abuse with withdrawal, unspecified (principal); R45.1 Restlessness and agitation; R94.31 Abnormal electrocardiogram [ECG] [EKG]; K21.9 Gastro-esophageal reflux disease without esophagitis; Z90.710 Acquired absence of both cervix and uterus; Y90.0 Blood alcohol level of less than 20 mg/100 ml
CPT/HCPCS: 36415; 80053; 83690; 85025; 93005; 96361; 96374; 96375; 99285; J2060; J2405; J7030

== ENCOUNTER 2021-04-22 16:05 | Emergency (ER) | payer MEDICARE ==
[~2021-04-22] VITALS: Ht 157.5 cm; Wt 47.0 kg
--- NOTE | 2021-04-22 16:41 | NUR ---
N/V X36 HOURS. WAS HERE LAST NIGHT AND PRESCRIBED ZOFRAN BUT NOT HELPING. I HAD C-DIFF IN DECEMBER AND HAD SEVERAL ROUNDS OF ABX. LIVER TRANSPLANT RECIPIENT. C/O CHEST PAIN D/T VOMITING. EKG DONE IN TRIAGE. PT STATES SHE HAS BEEN BINGE DRINKNG 1 PINT PER DAY. LAST DRINK YESTERDAY. SHE THINKS SHE IS DETOXING. PT ATTACHED TO MONITOR. VSS. KHAILL.
[2021-04-22] MEDS ORDERED: DIPHENHYDRAMINE 50 MG/ML, 1ML ONE (17:18)
[2021-04-22] MEDS ORDERED: METOCLOPRAMIDE 5 MG/ML, 2ML ONE (17:18)
[2021-04-22] MEDS ORDERED: SODIUM CHLORIDE 0.9% 1,000ML IVBOLUS ONE ×2 (17:30→21:00)
[2021-04-22] MEDS ORDERED: METOCLOPRAMIDE 5 MG/ML, 2ML IVPush ONE (17:30)
[2021-04-22] MEDS ORDERED: DIPHENHYDRAMINE 50 MG/ML, 1ML IVPush ONE (17:30)
[2021-04-22 17:33] LABS: ALANINE AMINOTRANSFERASE 36 U/L (12-78); ALBUMIN 4.4 g/dL (3.4-5.0); ANION GAP 16 mmol/L (5-15); CALCIUM 10.6 mg/dL (8.5-10.1); CHLORIDE 100 mmol/L (98-107); CREATININE 1.58 mg/dL (0.55-1.02)
[2021-04-22 17:35] LABS: ALKALINE PHOSPHATASE 95 U/L (45-117); BILIRUBIN,TOTAL 0.9 mg/dL (0.2-1.0); TOTAL PROTEIN 8.8 g/dL (6.4-8.2)
--- NOTE | 2021-04-22 17:53 | NUR ---
PT ASLEEP WITH EVEN AND UNLABORED RR.
[2021-04-22 18:33] LABS: MEAN CORPUSCULAR HEMOGLOBIN 36.1 pg (27.0-34.8); MEAN CORPUSCULAR HGB CONC 34.3 g/dL (32.4-35.8); MEAN PLATELET VOLUME 10.1 fL (7.4-10.4); PLATELET COUNT 239 x10^3/uL (130-400); RED BLOOD COUNT 4.53 x10^6/uL (3.82-5.3); RED CELL DISTRIBUTION WIDTH 14.7 % (9.6-15.2)
[2021-04-22 18:34] LABS: MD YES
[2021-04-22 19:01] LABS: BAND#(MANUAL) 0.35 x10^3/uL; BANDS%(MANUAL) 2 % (0-7); LYMPH#(MANUAL) 1.39 x10^3/uL (1-3.4); LYMPHS% (MANUAL) 8 % (22-44); MONOS#(MANUAL) 0.17 x10^3/uL (0.3-2.7); MONOS% (MANUAL) 1 % (2-9); REACTIVE LYMPHS # (MANUAL) 0.17 x10^3/uL (0-0); REACTIVE LYMPHS % (MANUAL) 1 % (0-0); SEG#(MANUAL) 15.31 x10^3/uL (1.8-6.8); SEGS% (MANUAL) 88 % (42-75)
[2021-04-22 19:02] LABS: <PLATELET ESTIMATE> ADEQUATE; <PLT MORPHOLOGY> NORMAL PLT MORPH
--- NOTE | 2021-04-22 19:04 | NUR ---
Emanuel pires in [facility] - 04/22/21 at 1923 by [email or web address] REPORT TO CASTRO
[2021-04-22 19:24] LABS: MICROSCOPIC NOT IND
--- NOTE | 2021-04-22 20:33 | NUR ---
Pt up to restroom to get stool sample. Stool sample sent. CXR done.
[2021-04-22] MEDS ORDERED: LORazepam 2 MG/ML, 1ML IVPush ONE (21:00)
[2021-04-22] MEDS ORDERED: LORazepam 2 MG/ML, 1ML ONE (21:10)
[2021-04-22 21:45] LABS: CLOSTRIDIUM DIFFICILE ANTIGEN POSITIVE; CLOSTRIDIUM DIFFICILE TOXIN NEGATIVE (Negative)
[2021-04-22 22:19] VITALS: BP 134/80
--- NOTE | 2021-04-22 22:40 | NUR ---
Patient given discharge instructions and they have confirmed that they understand the instructions. Patient ambulatory with steady gait. No Questions at time of discharge.
== END 2021-04-22 22:42 | disposition home or self-care (01) ==
LOC: ED 16:10
DX: R11.2 Nausea with vomiting, unspecified (principal); R19.7 Diarrhea, unspecified; N28.9 Disorder of kidney and ureter, unspecified; D72.829 Elevated white blood cell count, unspecified; E87.6 Hypokalemia; R94.31 Abnormal electrocardiogram [ECG] [EKG]
CPT/HCPCS: 36415; 71045; 80053; 81003; 83690; 85025; 87324; 87493; 93005; 96361; 96374; 96375; 99285; J1200; J2060; J2765; J7030

== ENCOUNTER 2021-04-30 11:10 | Emergency (ER) | payer MEDICARE ==
[~2021-04-30] VITALS: Ht 157.5 cm; Wt 47.6 kg
--- NOTE | 2021-04-30 11:51 | NUR ---
GLASS NOVELTY MAKER: PT TO ROOM FROM LOBBY
--- NOTE | 2021-04-30 11:58 | NUR ---
PT C/O DIARRHEA AND VOMITING. PT DX C-DIFF. HAS BEEN ON VANCO AND STARTED ON FLAGYL YESTERDAY. APPT WITH GI IN ONE WEEK. PT CONNECTED TO MONITORING. CALL LIGHT IN REACH. FRIEND AT BEDSIDE. ERPA AT BEDSIDE FOR ASSESSMENT.
--- NOTE | 2021-04-30 12:15 | NUR ---
PIV PLACED, LABS DRAWN. IVF RUNNING. PT CONNECTED TO MONITORING. CALL LIGHT IN REACH.
[2021-04-30] MEDS ORDERED: SODIUM CHLORIDE 0.9% 1,000ML IVBOLUS ONE (12:30)
[2021-04-30 12:47] LABS: BASOPHILS % (AUTO) 1 % (0-1); EOSINOPHILS % (AUTO) 11 % (1-7); LYMPHOCYTES % (AUTO) 33 % (22-44); MEAN CORPUSCULAR HEMOGLOBIN 36.9 pg (27.0-34.8); MEAN CORPUSCULAR HGB CONC 35.2 g/dL (32.4-35.8); MEAN PLATELET VOLUME 8.6 fL (7.4-10.4); MONOCYTES % (AUTO) 7 % (2-9); NEUTROPHILS % (AUTO) 48 % (42-75); PLATELET COUNT 268 x10^3/uL (130-400); RED BLOOD COUNT 4.02 x10^6/uL (3.82-5.3); RED CELL DISTRIBUTION WIDTH 14.1 % (9.6-15.2)
[2021-04-30 12:56] LABS: ALANINE AMINOTRANSFERASE 27 U/L (12-78); ALBUMIN 3.6 g/dL (3.4-5.0); ANION GAP 10 mmol/L (5-15); CHLORIDE 114 mmol/L (98-107); CREATININE 0.75 mg/dL (0.55-1.02)
[2021-04-30 12:58] LABS: ALKALINE PHOSPHATASE 66 U/L (45-117); BILIRUBIN,TOTAL 0.4 mg/dL (0.2-1.0); TOTAL PROTEIN 7.7 g/dL (6.4-8.2)
[2021-04-30 13:28] VITALS: BP 130/84
--- NOTE | 2021-04-30 13:28 | NUR ---
ALL RESULTS ARE BACK AT THIS TIME. CHART UP FOR RECHECK.
== END 2021-04-30 14:21 | disposition home or self-care (01) ==
LOC: ED 12:06
DX: A04.72 Enterocolitis due to Clostridium difficile, not specified as recurrent (principal); R19.7 Diarrhea, unspecified; R00.0 Tachycardia, unspecified; R53.1 Weakness; K21.9 Gastro-esophageal reflux disease without esophagitis
CPT/HCPCS: 36415; 80053; 83690; 85025; 96360; 99283; J7030